=== PATIENT | female | born 1965 | race Caucasian/White ===

== ENCOUNTER 2021-08-20 21:59 | Emergency (ER) | payer OTHER, SELFPAY ==
[~2021-08-20] VITALS: Ht 162.6 cm; Wt 70.5 kg
[~2021-08-20 21:59] MED LIST: NOCURR
[2021-08-21 00:32] VITALS: BP 100/58
== END 2021-08-21 01:11 | disposition home or self-care (01) ==
LOC: EMS 22:00
DX: F10.129 Alcohol abuse with intoxication, unspecified (principal)
CPT/HCPCS: 99283